=== PATIENT | female | born 1940 | race African-American/Black ===

== ENCOUNTER 2017-07-08 23:53 | Inpatient (IN) | payer OTHER ==
[~2017-07-08] VITALS: Ht 152.4 cm; Wt 68.0 kg
[2017-07-09] MEDS ORDERED: ONDANSETRON HCL 4MG/2ML VIAL IV STA (00:10)
[2017-07-09] MEDS ORDERED: MORPHINE SULFATE 4 MG/ML CPJ (NOT FOR IM USE) IV STA (00:10)
[2017-07-09] MEDS ORDERED: ASPIRIN 81MG TABLET PO ONE (00:15)
[2017-07-09] MEDS ORDERED: SODIUM CHLORIDE 0.9% 1,000 ML IV ONE (00:22)
[2017-07-09 01:23] LABS: HEMOGLOBIN. 11.7 g/dL (12.0-16.0); MEAN CORPUSCULAR VOLUME 89.4 fL (81.0-99.0); MEAN PLATELET VOLUME 7.8 fl (7.4-10.4); PLATELET 241 x1000/uL (130-400); RED BLOOD CELL COUNT 4.03 mill/uL (4.2-5.4); RED CELL DISTRIBUTION WIDTH 15.4 % (11.6-14.6)
[2017-07-09 01:34] LABS: CHLORIDE 104 mEq/L (98-107)
[2017-07-09 01:35] LABS: INR 2.2; PROTHROMBIN TIME 22.7 sec (9.4-11.6)
[2017-07-09 01:42] LABS: ETHANOL BLOOD < 10 mg/dL
[2017-07-09 01:50] LABS: ATYPICAL LYMPHOCYTES 1; PLATELET ESTIMATE NORMAL
[2017-07-09 05:18] LABS: CLARITY URINE CLOUDY (CLEAR); COLOR URINE DARK YELLOW (YELLOW); KETONES URINE NEGATIVE (NEGATIVE); LEUKOCYTE ESTERASE URINE TRACE (NEGATIVE); NITRITE URINE NEGATIVE (NEGATIVE); OCCULT BLOOD URINE NEGATIVE (NEGATIVE); PH URINE 5.5 (4.5-8.0); PROTEIN URINE TRACE (NEGATIVE); SPECIFIC GRAVITY URINE 1.012 (1.005-1.030)
[2017-07-09 05:31] LABS: *AMPHETAMINES SCREEN URINE NEGATIVE (NEGATIVE); *BARBITURATES SCREEN URINE NEGATIVE (NEGATIVE); *BENZODIAZEPINES SCREEN URINE NEGATIVE (NEGATIVE); *COCAINE SCREEN URINE NEGATIVE (NEGATIVE); CANNABINOID URINE SCREEN NEGATIVE (NEGATIVE); METHADONE URINE SCREEN NEGATIVE (NEGATIVE); OPIATES URINE SCREEN PRESUMTIVE POSITIVE (NEGATIVE); PHENCYCLIDINE URINE SCREEN NEGATIVE (NEGATIVE)
[2017-07-09] MEDS ORDERED: SODIUM CHLORIDE 0.45% 1,000 ML IV SCH (09:50)
[2017-07-09] MEDS ORDERED: MAGNESIUM/ALUMINUM HYDROXIDE/SIMETHICONE 30ML UDC PO PRN (10:00)
[2017-07-09] MEDS ORDERED: ACETAMINOPHEN 650MG SUPP PR PRN (10:00)
[2017-07-09] MEDS ORDERED: DIPHENHYDRAMINE 50MG/ML VIAL IV PRN (10:00)
[2017-07-09] MEDS ORDERED: ONDANSETRON HCL 4MG/2ML VIAL IV PRN (10:00)
[2017-07-09] MEDS ORDERED: ACETAMINOPHEN 325MG TABLET PO PRN (10:00)
[2017-07-09] MEDS ORDERED: IPRATROPIUM/ALBUTEROL 0.5-3(2.5)MG/3ML NEB INH PRN (10:00)
[2017-07-09] MEDS ORDERED: CLONIDINE 0.1MG TABLET PO PRN (10:00)
[2017-07-09] MEDS ORDERED: DOCUSATE SODIUM 100MG CAPSULE PO PRN (10:00)
[2017-07-09] MEDS ORDERED: ACETAMINOPHEN 650MG/20.3ML UDC GT PRN (10:00)
[2017-07-09] MEDS ORDERED: GUAIFENESIN 200MG/10ML SUGAR FREE UDC PO PRN (10:00)
[2017-07-09] MEDS ORDERED: HYDROCODONE/ACETAMINOPHEN 5/325MG TABLET PO PRN (10:00)
[2017-07-09 10:31] LABS: HEMOGLOBIN. 9.7 g/dL (12.0-16.0); MEAN CORPUSCULAR HEMOGLOBIN 28.8 pg (28.0-32.0); MEAN CORPUSCULAR VOLUME 88.9 fL (81.0-99.0); MEAN PLATELET VOLUME 7.7 fl (7.4-10.4); PLATELET 193 x1000/uL (130-400); RED BLOOD CELL COUNT 3.37 mill/uL (4.2-5.4); RED CELL DISTRIBUTION WIDTH 14.8 % (11.6-14.6)
[2017-07-09 10:41] LABS: CHLORIDE 108 mEq/L (98-107)
[2017-07-09 11:09] LABS: PLATELET ESTIMATE NORMAL
[2017-07-09 18:10] LABS: T4 FREE 1.23 ng/dL (0.76-1.46)
[2017-07-09] MEDS ORDERED: SODIUM CHLORIDE 0.9% 1000ML BAG (SEPSIS BOLUS) IV ONE (19:08)
[2017-07-09] MEDS ORDERED: ALBUMIN HUMAN 25GM/100ML (25%) IV ONE (19:08)
[2017-07-09] MEDS ORDERED: LEVOFLOXACIN 500MG PREMIX 100 ML IV NR (19:15)
[2017-07-09 20:00] VITALS: BP 141/67
[2017-07-09] MEDS ORDERED: NA PHOS,M-B/NA PHOS,DI-BA ENEMA 118ML PR PRN (21:00)
[2017-07-09 21:51] LABS: CREATINE KINASE 192 IU/L (26-192)
[2017-07-09] MEDS ORDERED: LEVOFLOXACIN 500MG PREMIX 100 ML IV SCH (22:00)
[2017-07-09] MEDS: METRONIDAZOLE 500 MG PREMIX 100 ML IV SCH (22:17)
[2017-07-09] MEDS: SODIUM CHLORIDE 0.9% INJ 3ML FLUSH IVF SCH (22:18)
[2017-07-09] MEDS: SODIUM CHLORIDE 0.9% 1,000 ML IV SCH (22:50)
[2017-07-09] MEDS ORDERED: CEFTRIAXONE 1 G PREMIX 50 ML IV SCH (23:00)
[2017-07-10] MEDS: SODIUM CHLORIDE 0.9% INJ 3ML FLUSH IVF SCH ×2 (05:42→14:00)
[2017-07-10] MEDS: METRONIDAZOLE 500 MG PREMIX 100 ML IV SCH ×2 (05:42→14:01)
[2017-07-10 05:43] LABS: INR 2.8; PARTIAL THROMBOPLASTIN TIME 45.7 sec (23.4-31.0); PROTHROMBIN TIME 29.5 sec (9.4-11.6)
[2017-07-10 06:33] LABS: CREATINE KINASE 164 IU/L (26-192); CREATINE KINASE MB FRACTION 2.9 ng/mL (0.5-3.6)
[2017-07-10 08:00] VITALS: BP 111/51
[2017-07-10] MEDS: SODIUM CHLORIDE 0.9% 1,000 ML IV SCH (08:30)
[2017-07-10] MEDS ORDERED: ASPIRIN 81MG TABLET PO SCH (09:00)
[2017-07-10] MEDS ORDERED: FAMOTIDINE 20MG/2ML VIAL IV SCH (09:00)
[2017-07-10] MEDS ORDERED: ENOXAPARIN 40MG/0.4ML SYR SUBCUT SCH (09:00)
[2017-07-10 10:00] VITALS: BP 135/66
[2017-07-10 10:12] LABS: HEMATOCRIT. 27.6 % (36.0-48.0); MEAN CORPUSCULAR VOLUME 88.5 fL (81.0-99.0); MEAN PLATELET VOLUME 8.3 fl (7.4-10.4); PLATELET 165 x1000/uL (130-400); RED BLOOD CELL COUNT 3.11 mill/uL (4.2-5.4); RED CELL DISTRIBUTION WIDTH 15.5 % (11.6-14.6)
[2017-07-10 10:16] LABS: CHLORIDE 107 mEq/L (98-107)
[2017-07-10 12:00] VITALS: BP 111/59
[2017-07-10 14:00] VITALS: BP 126/55
[2017-07-10 15:19] VITALS: BP 126/54
[2017-07-10 16:00] VITALS: BP 140/68
[2017-07-10 19:00] LABS: PLATELET ESTIMATE NORMAL
== END 2017-07-10 16:00 | disposition short-term general hospital (02) | DRG 309 ==
LOC: ER 23:53 → EDBEDREQTM 07-09 01:49 → EDBEDREQ 07-09 01:49 → EDBEDREQTM 07-09 07:43 → EDBEDREQSVC 07-09 07:43 → CANRESERV 07-09 08:30 → ENRESERV 07-09 08:30 → EDBEDREQSVC 07-09 09:59 → ENRESERV 07-09 19:17 → 5EST 07-09 20:12
PROVIDERS: ADMIT Family Medicine; ATTEND Family Medicine
DX: I48.91 Unspecified atrial fibrillation (principal); N39.0 Urinary tract infection, site not specified; N28.1 Cyst of kidney, acquired; D64.9 Anemia, unspecified; E78.5 Hyperlipidemia, unspecified; I10 Essential (primary) hypertension; Z79.01 Long term (current) use of anticoagulants; Z98.84 Bariatric surgery status; K80.20 Calculus of gallbladder without cholecystitis without obstruction; K21.9 Gastro-esophageal reflux disease without esophagitis
CPT/HCPCS: 36415; 36569; 71045; 74176; 74181; 76705; 76937; 77001; 80053; 80061; 80076; 80305; 81003; 82550; 82553; 83036; 83605; 83690; 83880; 84439; 84443; 84484; 85025; 85379; 85610; 85730; 93005; 93970; 96365; 96375; 99285; C1725; G0482; J0696; J1956; J2270; J2405; J3490; J7030; J7050; P9047